=== PATIENT | male | born 1965 | race Caucasian/White ===

== ENCOUNTER 2017-10-15 08:35 | Emergency (ER) | payer OTHER ==
[~2017-10-15] VITALS: Ht 190.5 cm; Wt 129.3 kg
--- NOTE | ~2017-10-15 | EKG ---
[place] [address] [facility] [place] [address] ELECTROCARDIOGRAM REPORT Name: WANDER RIBEIRO Room #: 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
[2017-10-15 08:53] LABS: ABSOLUTE NEUTROPHILS 12.4 thou/uL (1.4-8.2); BASOPHILS 0.4 % (0.0-2.0); HEMATOCRIT 45.3 % (42.0-52.0); HEMOGLOBIN 15.4 gm/dL (14.0-18.0); LYMPHOCYTES 8.9 % (24.0-44.0); MCH 29.3 pg (26.0-34.0); MCHC 33.9 g/dL (28.0-37.0); MCV 86.2 fL (80.0-100.0); MONOCYTES 3.3 % (1.0-8.0); PLATELET COUNT 239 thou/uL (150-400); POLYS 87.4 % (36.0-66.0); RBC 5.25 mil/uL (4.50-6.00); RDW 13.2 % (10.5-14.5); WBC 14.1 thou/uL (4.0-11.0)
[2017-10-15 09:02] LABS: ANION GAP 2 mmol/L (7-16); BUN 19 mg/dL (7-18); CALCIUM 9.8 mg/dL (8.5-10.1); CHLORIDE 104 mmol/L (98-107); CO2 30 mmol/L (21-32); CREATININE 1.1 mg/dL (0.7-1.3); GLUCOSE 157 mg/dL (74-106); POTASSIUM 4.3 mmol/L (3.5-5.1); SODIUM 136 mmol/L (136-145)
[2017-10-15 09:10] LABS: ALBUMIN 3.8 g/dL (3.4-5.0); DIRECT BILIRUBIN < 0.1 mg/dL (<0.1-0.3); LIPASE 191 U/L (73-393); SGOT 23 U/L (15-37); SGPT 36 U/L (30-65); TOTAL BILIRUBIN 0.3 mg/dL (<0.1-1.0); TOTAL PROTEIN 7.4 g/dL (6.4-8.2); TROPONIN-I <0.06 ng/mL (<0.06)
[2017-10-15] MEDS ORDERED: LYRICA225 MG PO (09:25)
[2017-10-15] MEDS ORDERED: WELLBUTRIN SR100 MG PO (09:25)
[2017-10-15] MEDS ORDERED: MORPHINE SULFAT10 M2 PO (09:25)
[2017-10-15] MEDS ORDERED: CYMBALTA60 MG PO (09:25)
[2017-10-15] MEDS ORDERED: HYDROCODONE-AP1 EAC6 PO (09:26)
[2017-10-15] MEDS ORDERED: ZOFRAN4 MG PO (11:59)
[2017-10-15 12:14] VITALS: BP 118/69
== END 2017-10-15 12:15 | disposition home or self-care (01) ==
LOC: ER 08:35
PROVIDERS: Emergency Medicine
DX: R10.9 Unspecified abdominal pain (principal); R11.2 Nausea with vomiting, unspecified

== ENCOUNTER 2019-06-22 21:48 | Emergency (ER) | payer BC ==
[~2019-06-22] VITALS: Ht 190.5 cm; Wt 136.1 kg
[~2019-06-22 21:48] MED LIST: CYMBALTA60 MG PO; HYDROCODONE-AP1 EAC6 PO; LYRICA225 MG PO; MORPHINE SULFAT10 M2 PO; WELLBUTRIN SR100 MG PO; ZOFRAN4 MG PO
[2019-06-22 23:37] LABS: BASOPHILS 0.4 % (0.0-2.0); EOSINOPHILS 0.1 % (0.0-3.0); HEMATOCRIT 49.2 % (42.0-52.0); HEMOGLOBIN 16.5 gm/dL (14.0-18.0); LYMPHOCYTES 8.1 % (24.0-44.0); MCH 29.1 pg (26.0-34.0); MCHC 33.5 g/dL (28.0-37.0); MCV 87.1 fL (80.0-100.0); MONOCYTES 4.9 % (1.0-8.0); PLATELET COUNT 277 thou/uL (150-400); POLYS 86.5 % (36.0-66.0); RBC 5.65 mil/uL (4.50-6.00); RDW 13.5 % (10.5-14.5); WBC 17.3 thou/uL (4.0-11.0)
[2019-06-22 23:46] LABS: CREATININE 1.1 mg/dL (0.7-1.3); POTASSIUM 3.9 mmol/L (3.5-5.1)
[2019-06-23] MEDS ORDERED: LIDODERM1 EACH TOP (01:59)
[2019-06-23 02:05] VITALS: BP 122/80
--- NOTE | 2019-06-23 08:12 | EKG ---
[facility] [place] [address] ELECTROCARDIOGRAM REPORT Name: WANDER RIBEIRO Room #: DEP M.#: [id number] Admission: 06/22/19 Attend Phys: Discharge: 06/23/19 Date of : 61 Report #: [id number] THIS REPORT FOR: cc: Yvan Bourgeois MD, Scott MD Lundgren,Jabier Benjamin MD [facility] ~ THIS REPORT FOR: //name// [facility] ED Test Date: 2019-06-22 Test Time: 23:59:12 Pat Name: WANDER RIBEIRO Department: Room: Gender: [employer]se Driver: Alda RAMOS : 1965 Requested By: Ana Luisa Blanca Order Number: [id number] MD: Jabier Godinez Measurements Intervals [place] Rate: 120 P: 52 IN: 164 QRS: 95 QRSD: 87 T: 27 QT: 308 QTc: 436 Interpretive Statements Sinus tachycardia Borderline right axis deviation Compared to ECG 10/15/2017 08:38:02 No significant change was found Electronically Signed On 06-23-2019 8:11:16 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
== END 2019-06-23 02:05 | disposition home or self-care (01) ==
LOC: ER 21:48
PROVIDERS: Emergency Medicine
DX: R07.89 Other chest pain (principal); R10.13 Epigastric pain; R11.0 Nausea; R05 Cough; Z79.899 Other long term (current) drug therapy; Z91.048 Other nonmedicinal substance allergy status